=== PATIENT | male | born 1945 | race Caucasian/White ===

== ENCOUNTER 2017-09-17 16:52 | Emergency (ER) | payer OTHER ==
[~2017-09-17] VITALS: Ht 180.3 cm; Wt 80.3 kg
[2017-09-17] MEDS ORDERED: VISTARIL 25 MG25 M1 PO (17:00)
[2017-09-17] MEDS ORDERED: HYDROCODONE-AP1 EAC6 PO (19:13)
[2017-09-17 19:44] VITALS: BP 132/62
== END 2017-09-17 19:45 | disposition home or self-care (01) ==
LOC: M.ERS 16:52 → EDBD 16:52 → M.ERS 19:45
DX: M54.5 Low back pain (principal)

== ENCOUNTER 2017-11-27 23:12 | Emergency (ER) | payer OTHER ==
[~2017-11-27] VITALS: Ht 180.3 cm; Wt 79.4 kg
[~2017-11-27 23:12] MED LIST: HYDROCODONE-AP1 EAC6 PO; VISTARIL 25 MG25 M1 PO
[2017-11-27] MEDS ORDERED: ALLOPURINOL 10100 M1 PO (23:34)
[2017-11-27] MEDS ORDERED: KEFLEX500 M1 PO (23:35)
[2017-11-27] MEDS ORDERED: DOXYCYCLINE 10100 MG PO (23:36)
[2017-11-27] MEDS ORDERED: IBUPROFEN 800800 M1 PO (23:37)
[2017-11-27] MEDS ORDERED: PREDNISONE 20 M20 M1 PO (23:55)
[2017-11-27] MEDS ORDERED: NORCO 5-325 TA1 EACH PO (23:55)
[2017-11-28 00:02] VITALS: BP 122/59
== END 2017-11-28 00:16 | disposition home or self-care (01) ==
LOC: M.ERS 23:12
DX: M10.9 Gout, unspecified (principal)

== ENCOUNTER 2017-12-27 17:27 | Emergency (ER) | payer OTHER ==
[~2017-12-27] VITALS: Ht 180.3 cm; Wt 79.0 kg
[~2017-12-27 17:27] MED LIST changes: +ALLOPURINOL 10100 M1 PO; +DOXYCYCLINE 10100 MG PO; +IBUPROFEN 800800 M1 PO; +KEFLEX500 M1 PO; +NORCO 5-325 TA1 EACH PO; +PREDNISONE 20 M20 M1 PO
[2017-12-27] MEDS ORDERED: PERCOCET PO (17:42)
[2017-12-27] MEDS ORDERED: [UNRECOGNIZED DRUG - OTHER] PO (17:42)
[2017-12-27] MEDS ORDERED: ULORIC40 MG PO (17:43)
[2017-12-27 18:17] LABS: HEMOGLOBIN 14.2 gm/dL (14.0-18.0); MCHC 33.8 g/dL (28.0-37.0); MCV 94.8 fL (80.0-100.0); MPV 8.1 fl. (7.2-11.1); NUCLEATED RBCS 0 /100WBC; PLATELET COUNT* 184 thou/uL (150-400); RBC 4.43 mil/uL (4.50-6.00); RDW-CV 17.3 % (10.5-14.5); WBC 12.9 thou/uL (4.0-11.0)
[2017-12-27 18:31] LABS: CALCIUM 8.6 mg/dL (8.5-10.1); CREATININE 0.8 mg/dL (0.6-1.3); POTASSIUM 4.1 mmol/L (3.5-5.1)
[2017-12-27 18:36] LABS: ALBUMIN 3.5 g/dL (3.4-5.0); TOTAL BILIRUBIN 0.5 mg/dL (<0.1-1.0); TOTAL PROTEIN 7.4 g/dL (6.4-8.2)
[2017-12-27 18:40] LABS: ABSOLUTE LYMPHOCYTES 1.9 thou/uL (0.8-5.3); ABSOLUTE MONOCYTES 0.6 thou/uL (0.0-1.2); ABSOLUTE NEUTROPHILS 10.3 thou/uL (1.6-8.1)
[2017-12-27 18:41] LABS: PLATELET ESTIMATE ADEQUATE
[2017-12-27 18:42] LABS: ANISOCYTOSIS Occasional
[2017-12-27] MEDS ORDERED: CEFUROXIME250 MG PO (18:48)
[2017-12-27 19:10] VITALS: BP 122/76
== END 2017-12-27 19:10 | disposition home or self-care (01) ==
LOC: M.ERS 17:27
PROVIDERS: Nurse Practitioner Family
DX: K59.00 Constipation, unspecified (principal); J18.9 Pneumonia, unspecified organism